=== PATIENT | female | born 1950 | race Caucasian/White ===

== ENCOUNTER 2017-03-08 10:28 | Inpatient (IN) | payer BC ==
--- NOTE | 2017-03-08 11:16 | RAD ---
HISTORY: Chest pain COMPARISONS: July 13, 2012 VIEWS:1: Single frontal portable view of the chest at 10:56 AM FINDINGS: LINES AND TUBES: None. CARDIOMEDIASTINAL SILHOUETTE: The cardiomediastinal silhouette is normal for portable technique. PLEURA: The costophrenic angles are sharp. No pleural abnormalities are noted. LUNG PARENCHYMA: There is hyperinflation. ABDOMEN: The upper abdomen is clear. There is no subphrenic gas. BONES AND SOFT TISSUES: No bone or soft tissue abnormalities are noted. IMPRESSION: NO ACTIVE CARDIOPULMONARY DISEASE.
[2017-03-08 11:26] LABS: Hematocrit 42 % (35-47); Hemoglobin 13.7 g/dl (12.0-16.0); Mean Corpuscular HGB Conc 33 g/dl (31-36); Mean Corpuscular Hemoglobin 32 pg (27-31); Mean Corpuscular Volume 98 fL (80-97); Mean Platelet Volume 9 um3 (7.4-10.4); Red Blood Count 4.24 10^6/ul (4.0-5.4); Red Cell Distribution Width 14 % (10.5-15); White Blood Count 4.8 10^3/ul (3.5-10.8)
[2017-03-08 11:43] LABS: Albumin 3.9 g/dL (3.2-5.2); BUN/Creatinine Ratio 17.6 (8-20); Calcium 9.3 mg/dL (8.6-10.3); EGFR African American 86.6 (>60); EGFR Non-African American 67.3 (>60); Globulin 2.7 g/dL (2-4); Potassium 3.9 mmol/L (3.5-5.0); Total Bilirubin 0.4 mg/dL (0.2-1.0); Total Protein 6.6 g/dL (6.4-8.9)
[2017-03-08 11:48] LABS: Troponin I 0.46 ng/mL (<0.04)
[2017-03-08] MEDS ORDERED: Nitroglycerin TAB 0.4 MG* 0.4 MG TAB SL ONE (12:06)
[2017-03-08] MEDS ORDERED: Aspirin Low Dose CHEW TAB* 81 MG PO ONE (12:06)
[2017-03-08] MEDS ORDERED: Enoxaparin(*) 60 MG/0.6 ML SYR SUBCUT ONE (12:08)
[2017-03-08] MEDS ORDERED: Metoprolol Tartrate TAB* 25 MG PO ONE (12:19)
[2017-03-08] MEDS ORDERED: Atorvastatin* 80 MG TAB PO ONE (12:20)
[2017-03-08] MEDS ORDERED: Clopidogrel TAB* 300 MG PO ONE (13:18)
[2017-03-08] MEDS ORDERED: Morphine INJ* 2 MG/ML 1 ML SYRINGE IV PRN (13:18)
[2017-03-08] MEDS ORDERED: Nitroglycerin TAB 0.4 MG* 0.4 MG TAB SL PRN (13:18)
[2017-03-08 13:51] LABS: Magnesium 1.9 mg/dL (1.9-2.7)
[2017-03-08 13:57] LABS: TSH (Thyroid Stimulating Horm) 1.43 mcIU/mL (0.34-5.60)
[2017-03-08] MEDS ORDERED: Captopril TAB* 12.5 MG PO SCH (14:00)
[2017-03-08] MEDS ORDERED: Nicotine GUM* 2 MG PO PRN (14:11)
[2017-03-08] MEDS ORDERED: Nicotine Inhaler* 10 MG AMP INH PRN (14:11)
[2017-03-08] MEDS ORDERED: Mouth Piece, Nicotine* 1 EACH CARTRIDGE INH ONE (15:00)
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
[2017-03-08] MEDS: amLODIPine TAB* 5 MG PO SCH (15:35)
--- NOTE | 2017-03-08 16:37 | HP ---
CC: Dr. Lindsey * MEDICINE HISTORY AND PHYSICAL: DATE OF ADMISSION: 03/08/17 PROVIDER: Manuel Huerta NP ATTENDING PHYSICIAN: Zita Esparza MD * (as dictated by Manuel Huerta NP) . CONSULTING PHYSICIAN: Pavel Segundo MD, Cardiology. PRIMARY CARE PROVIDER: Tatiana Lindsey MD CHIEF COMPLAINT: Chest discomfort and left arm numbness. HISTORY OF PRESENT ILLNESS: Ms. Mendez is a 66-year-old female who presents today with concern for chest pressure and left arm numbness. This started originally about 3 days ago when the patient thought she was having frequent heartburn. She describes as burning to the mid chest with burping. She reports that prior to that she really got heartburn. It will last about 5 minutes at a time and then cease on its own. She has been treating this with Tums and baking soda and water. She started having left arm numbness accompanying these symptoms, which started about 2 days ago, also intermittent and described some fatigue, but she attributed to humidity and this was in addition to the chest discomfort and arm numbness. This morning, the patient reports that her arm felt almost totally numb and the feeling in her chest turned to pressure as opposed to burning. At this point, her made her to come into the ER for further evaluation. Here in the ER, the patient initially continues to show no radiographic changes, but her initial troponin was seemed to be 0.46. There was concern for NSTEMI and Cardiology was consulted. Of note, the patient does have a history of carotid endarterectomy around 2001 that was based on the finding as her physician heard a carotid bruit. She was previously on aspirin and Lipitor, but she self-discontinued these medications because she thought she did not need them. She denies any recent fevers, chills. The last known cold was few weeks ago. She states that she usually sleeps well, but she does wake up a lot during the night. She denies snoring or daytime sleepiness. She does again endorse chest discomfort and pressure. Denies any palpitations, dizziness, syncopal episodes, or lower extremity edema. She denies any shortness of breath, cough. She denies any abdominal pain, nausea, vomiting, or diarrhea. She denies dysuria, frequency, or hematuria. She denies any focal weakness, difficulty with speech, ataxia. She denies any new visual complaints, hearing complaints, or swallowing complaints, any new joint or muscle pains. The patient reports that she gets intermittent rashes to her back that is attributed to herpes simplex virus, but no flare-up of it recently. PAST MEDICAL HISTORY: 1. Hypothyroidism. 2. Herpes simplex virus to the back, states that she has flare-ups when she gets nervous and takes acyclovir daily for this. 3. History of meningoma. PAST SURGICAL HISTORY: Includes: 1. Carotid endarterectomy in 2001. 2. Tonsillectomy. 3. Left breast tumor removal in 1969 that was benign. 4. History of ovarian cyst removal. 5. Tubal ligation. ALLERGIES: Include PEANUTS, LEGUMES, ERYTHROMYCIN, IBUPROFEN, AND NAPROXEN. HOME MEDICATIONS: 1. Levothyroxine 50 mcg daily. 2. Acyclovir 200 mg daily. 3. Ascorbic acid 500 mg daily. 4. Multivitamin 1 tab daily. 5. Black cohosh 540 mg daily. FAMILY HISTORY: Significant for father who of an OH at age 53 and mother who has diabetes and chronic kidney disease, a brother with high blood pressure and aunt with breast cancer. SOCIAL HISTORY: The patient endorses a 48 year smoking history and states that she only smokes occasional cigarette and e-cigarettes now. She denies any alcohol use and reports occasional marijuana use. 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 She is . Her , Scott Mendez, is her healthcare proxy. REVIEW OF SYSTEMS: As per HPI. PHYSICAL EXAMINATION GENERAL: Ms. Mendez is very pleasant 66-year-old female, who is lying in the ED stretcher, in no acute distress. VITAL SIGNS: Temperature 97.5, heart rate 60, respiratory rate 22, blood pressure 146/79, and O2 saturation is 99% on room air. HEENT: Head is atraumatic, normocephalic. Face is symmetrical. Pupils are equal, round, and reactive to light. Extraocular movements are intact. Sclerae are anicteric. Oral mucosa is moist. There is no oropharyngeal erythema or exudate. NECK: Supple. No JVD noted. No carotid bruits noted. The patient has full range of motion. CARDIAC: S1 and S2. Heart sounds regular rate and rhythm. No murmurs, rubs, or gallops. No peripheral edema. Distal pulses are 2+ equal bilaterally. RESPIRATORY: Lungs are clear to auscultation. No accessory muscle use. ABDOMEN: Soft, nontender, nondistended. Bowel sounds present in all 4 quadrants. MUSCULOSKELETAL: There is no clubbing or cyanosis. The patient has full range of motion. SKIN: Appears grossly intact. NEUROLOGIC: Cranial nerves II through XII are grossly intact. The patient moves all extremities with no focal deficits. Sensation is intact to light touch to the lower extremities. PSYCHIATRIC: She is alert and oriented x3. Affect is appropriate. LABORATORY DATA AND DIAGNOSTIC STUDIES: CBC: WBC 4.8, hemoglobin 13.7, hematocrit 42, MCV 98, MCH 32, platelet count 257. CMP: Sodium 139, potassium 3.9, chloride 104, carbon dioxide 31, BUN 15, creatinine 0.95, glucose 109, lactic acid 1.6, calcium 9.3, magnesium 1.9. Total bilirubin 0.4, AST 25, ALT 16, alk phos 75. Total CK 162, CK-MB 9.5, troponin 0.46, BNP 53. Albumin 3.9. TSH 1.43. EKG shows sinus bradycardia, rate of [address] changes or T-wave inversions. Chest x-ray shows no acute pathology. Limited medical records for review. ASSESSMENT AND PLAN: Ms. Mendez is a 66-year-old female who presents today with chest discomfort and left arm numbness that are significant concerning for non-ST elevation myocardial infarction. She will be admitted to the telemetry. Plan is as follows: 1. Non-ST elevation myocardial infarction. Cardiology is following. The patient has been started on subcu Lovenox for full anticoagulation and additionally we started her on Plavix, aspirin, atorvastatin, and metoprolol with p.r.n. nitroglycerin. We will carefully monitor her blood pressure. The patient is mildly bradycardic, so we may have to hold off on the beta lisa if she is persistently bradycardic, as right now I have started her on 12.5 mg b.i.d. with hold parameters. At this time, the plan is for cardiac catheterization on Friday. Dr. Christopher is planning to see the patient tomorrow. No JAZIEL inhibitor was started for the patient at this time, as she will likely receive dye with cardiac catheterization and would like to prevent any acute kidney injury. I have started her on amlodipine which is the new medication for better blood pressure control as she is mildly hypertensive. We will continue p.r.n. nitroglycerin to keep the patient pain free. She is currently denying any chest pain or arm numbness, though we will continue to monitor. We will check lipid profile tomorrow as well as the hemoglobin A1c and continue to modify the patient's risk factors and continue with medical management. 2. Hypothyroidism. TSH is 1.43. Continue current levothyroxine dose. 3. History of herpes simplex virus. It appears that the patient was switched to acyclovir on a p.r.n. basis, but takes it daily to avoid flare-up, so we will continue this. 4. Macrocytosis. This is mild. I will check a B12 and folate level tomorrow. Continue to monitor. 5. Tobacco abuse. P.r.n. nicotine replacement available as needed. The patient has been advised to stop smoking. 6. FEN: The patient is ordered a heart healthy diet. 7. DVT prophylaxis: She will be fully anticoagulated with Lovenox. 8. Code status: The patient is a full code. TIME SPENT: Time spent on this admission was approximately 65 minutes, more than half of the time was spent [id number] with the patient obtaining history and physical, performing the physical examination, and reviewing the plan of care. Plan of care was also reviewed with my attending, Dr. Esparza, who is in agreement. MANUEL HUERTA, SENIOR SOFTWARE ANALYST [id number]/[facility] #: [id number] ANTONIO
[2017-03-08] MEDS: Atorvastatin* 80 MG TAB PO SCH (18:18)
[2017-03-08] MEDS: Metoprolol Tartrate TAB* 25 MG PO SCH (20:25)
[2017-03-08] MEDS: Enoxaparin(*) 60 MG/0.6 ML SYR SUBCUT SCH (23:56)
[2017-03-09 03:15] LABS: Hematocrit 40 % (35-47); Mean Corpuscular HGB Conc 33 g/dl (31-36); Mean Corpuscular Hemoglobin 32 pg (27-31); Mean Corpuscular Volume 98 fL (80-97); Mean Platelet Volume 9 um3 (7.4-10.4); Red Blood Count 4.02 10^6/ul (4.0-5.4); Red Cell Distribution Width 14 % (10.5-15); White Blood Count 6.1 10^3/ul (3.5-10.8)
[2017-03-09] MEDS: Levothyroxine TAB* 50 MCG TAB PO SCH (05:11)
[2017-03-09 06:22] LABS: BUN/Creatinine Ratio 17.9 (8-20); Calcium 9.2 mg/dL (8.6-10.3); EGFR African American 95.6 (>60); EGFR Non-African American 74.4 (>60); HDL Cholesterol 54.7 mg/dL; Potassium 4.1 mmol/L (3.5-5.0)
[2017-03-09 06:26] LABS: Troponin I 0.69 ng/mL (<0.04)
[2017-03-09 06:51] LABS: Folate 19.64 ng/mL (>3.99)
[2017-03-09] MEDS: Metoprolol Tartrate TAB* 25 MG PO SCH ×2 (07:40→20:08)
[2017-03-09] MEDS: amLODIPine TAB* 5 MG PO SCH (09:26)
[2017-03-09] MEDS: Acyclovir* 200 MG CAP PO SCH (09:26)
[2017-03-09] MEDS: Multivitamins/Minerals TAB PO SCH (09:26)
[2017-03-09] MEDS: Ascorbic Acid TAB* 500 MG PO SCH (09:27)
[2017-03-09] MEDS: Clopidogrel TAB* 75 MG PO SCH (09:27)
[2017-03-09] MEDS: Aspirin Low Dose CHEW TAB* 81 MG PO SCH (09:27)
[2017-03-09] MEDS: Acetaminophen TAB* 325 MG PO PRN ×2 (09:30→20:19)
--- NOTE | 2017-03-09 11:09 | ECHO ---
Patient: ILANA DOW [facility] Rec#: [id number] : 1950 Date: 03/09/2017 Age: 66y Height: 167.64 cm / 66.0 in Weight: 57.15 kg / 126.0 lbs Sex: F BSA: 1.64 Room#: 433 Admit Date#: 03/08/2017 Type: Inpatient Referring: Christina Roy Reading: Pavel Segundo MD [employer]: Ashley Mcnamara,STACICS,RDMS CC: Tatiana Lindsey MD Transthoracic Echocardiogram Indication: NSTEMI BP: 104/53 HR: 64 Rhythm: NSR Findings History: Carotid endarterectomy, smoker. Technical Comments: The study quality is good. Completed 0940 Left Ventricle: The left ventricular chamber size is normal. There is normal left ventricular systolic function. The estimated ejection fraction is 55-60%. There is no consistent Doppler evidence of clinically significant diastolic dysfunction. The mid inferior wall segment is hypokinetic (score 2). Overall wallmotion score index is 2.00 Left Atrium: The left atrial chamber size is normal. Right Ventricle: The right ventricular chamber size and systolic function are within normal limits. Right Atrium: The right atrial cavity size is normal. Aortic Valve: The aortic valve is trileaflet. The aortic valve leaflets are mildly thickened. There is no evidence of aortic regurgitation. There is no evidence of aortic stenosis. Mitral Valve: The mitral valve leaflets appear normal. There is no evidence of mitral regurgitation. Tricuspid Valve: The tricuspid valve leaflets are normal. There is trace tricuspid regurgitation. No pulmonary hypertension is noted. Pulmonic Valve: There is no evidence of pulmonic valve thickening. There is a trace pulmonic regurgitation. There is no pulmonic stenosis. Pericardium: There is no significant pericardial effusion. Aorta: The aortic root appears normal. There is no dilatation of the ascending aorta. There is no dilatation of the aortic arch. Pulmonary Artery: The main pulmonary artery appears normal. Venous: The inferior vena cava appears normal in size. There is a greater than 50% respiratory change in the inferior vena cava dimension. Conclusions There is overall normal left ventricular systolic function. The estimated ejection fraction is 55-60%. There appears to be a small area of mid inferior wall hypokinesis. Normal cardiac chamber sizes. Functionally benign heart valves. There is no prior echocardiogram available to compare with at this time. Measurements Name Value Normal Range RVIDd (AP) 2D 2 cm (0.9 - 2.6) RVDdMajor (2D) 2.3 cm (2.2 - 4.4) RAd ISD 4CH 4.1 cm (3.4 - 4.9) RA (A4C)W 3.9 cm (2.9 - 4.6) IVSd (2D) 1 cm (0.6 - 1) LVPWd (2D) 0.8 cm (0.6 - 1) LVIDd (2D) 3.9 cm (3.6 - 5.4) LVIDs (2D) 2.6 cm - LV FS (2D) 34 % (25 - 45) EF Teichholz (2D) 63 % - Aortic Annulus 1.9 cm (1.4 - 2.6) Ao root diameter (2D) 3 cm (2.1 - 3.5) Ascending Ao 2.8 cm (2.1 - 3.4) Aortic arch 2.6 cm (1.8 - 3.4) LA dimension (AP) 2D 2.9 cm (2.3 - 3.8) LAd ISD 4CH 4.2 cm (2.9 - 5.3) LA ISD 4CH W 3.9 cm (2.5 - 4.5) Name Value Normal Range LA ESV SP 4CH (A/L) 41.69 ml - LA ESV SP 2CH (A/L) 33.71 ml - LA ESV BP (A/L) 40 ml - LA ESV BP (A/L) index 24 ml/m2 - LA ESV SP 4CH (MOD) 38.39 ml - LA ESV SP 2CH (MOD) 31.06 ml - Name Value Normal Range MV E-wave Vmax 0.8 m/sec - MV deceleration time 238 msec - MV A-wave Vmax 0.7 m/sec - MV E:A ratio 1.1 ratio - P. vein S-wave Vmax 0.5 m/sec - P. vein D-wave Vmax 0.6 m/sec - P. vein S:D Vmax ratio 0.9 ratio - P. vein A-wave duration 125 msec - LV septal e' Vmax 0.06 m/sec - LV lateral e' Vmax 0.07 m/sec - LV E:e' septal ratio 13 ratio - LV E:e' lateral ratio 11 ratio - Name Value Normal Range AV Vmax 1.4 m/sec - AV VTI 34 cm - AV peak gradient 8 mmHg - AV mean gradient 4.4 mmHg - LVOT Vmax 0.8 m/sec - LVOT VTI 20 cm - LVOT peak gradient 2.6 mmHg - LVOT mean gradient 1.7 mmHg - JACQUES Vmax 0.8 m/sec - Name Value Normal Range TR Vmax 2.5 m/sec - TR peak gradient 25 mmHg - RAP 3 mmHg - RVSP 28 mmHg - IVC diameter 1.7 cm - Name Value Normal Range PV Vmax 0.8 m/sec - PV peak gradient 2.6 mmHg - Wallmotion BAS Not Seen BA Not Seen BAL Not Seen JACOBY Not Seen BI Not Seen BIS Not Seen MAS Not Seen MA Not Seen MAL Not Seen MIL Not Seen KS Hypokinetic MIS Not Seen Not Seen AA Not Seen AL Not Seen AI Not Seen APEX Not Seen
[2017-03-09] MEDS: Enoxaparin(*) 60 MG/0.6 ML SYR SUBCUT SCH (12:00)
[2017-03-09] MEDS ORDERED: Enoxaparin(*) 60 MG/0.6 ML SYR SUBCUT SCH (13:23)
[2017-03-09] MEDS: Atorvastatin* 80 MG TAB PO SCH (17:35)
--- NOTE | 2017-03-09 18:37 | PN ---
Subjective Date of Service: 03/09/17 Interval History: no pain, sob OOB and waking to bathroom Objective Active Medications: Acetaminophen (Tylenol Tab*) 650 mg PO Q4H PRN PRN Reason: FEVER/PAIN Last Admin: 03/09/17 09:30 Dose: 650 mg Acyclovir (Zovirax Cap*) 200 mg PO DAILY [facility] Last Admin: 03/09/17 09:26 Dose: 200 mg Amlodipine Besylate (Norvasc Tab*) 5 mg PO DAILY [facility] Last Admin: 03/09/17 09:26 Dose: 5 mg Ascorbic Acid (Vitamin C Tab*) 500 mg PO DAILY [facility] Last Admin: 03/09/17 09:27 Dose: 500 mg Aspirin (Aspirin Low Dose Tab*) 81 mg PO DAILY [facility] Last Admin: 03/09/17 09:27 Dose: 81 mg Atorvastatin Calcium (Lipitor*) 80 mg PO 1700 [facility] Last Admin: 03/09/17 17:35 Dose: 80 mg Clopidogrel Bisulfate (Plavix Tab*) 75 mg PO DAILY [facility] Last Admin: 03/09/17 09:27 Dose: 75 mg Diazepam (Valium Tab(*)) 5 mg PO ONCE ONE Stop: 03/10/17 08:01 Diphenhydramine HCl (Benadryl Po*) 25 mg PO ONCE ONE Stop: 03/10/17 08:01 Enoxaparin Sodium (Lovenox(*)) 60 mg SUBCUT ONCE ONE Stop: 03/10/17 00:01 Sodium Chloride (Ns 0.9% 1000 Ml*) 1,000 mls @ 100 mls/hr IV .per rate [facility] Levothyroxine Sodium (Synthroid Tab*) 50 mcg PO DAILY@0600 [facility] Last Admin: 03/09/17 05:11 Dose: 50 mcg Metoprolol Tartrate (Lopressor Tab*) 12.5 mg PO Q12HR [facility] Last Admin: 03/09/17 07:40 Dose: Not Given Morphine Sulfate (Morphine Inj (Syringe)*) 2 mg IV Q4H PRN PRN Reason: PAIN Multivitamins/Minerals (Theragran/Minerals Tab*) 1 tab PO DAILY [facility] Last Admin: 03/09/17 09:26 Dose: 1 tab Nicotine (Nicotine Inhaler*) 10 mg INH Q2H PRN PRN Reason: CRAVING Last Admin: 03/08/17 16:00 Dose: 10 mg Nicotine Polacrilex (Nicotine Gum*) 2 mg PO Q2H PRN PRN Reason: CRAVING Nitroglycerin (Nitroglycerin Tab 0.4 Mg*) 0.4 mg SL Q5M PRN PRN Reason: ANGINA Vital Signs 03/08/17 03/08/17 03/08/17 19:52 20:00 23:33 Temperature 98.3 F 98.3 F Pulse Rate 65 63 Respiratory 16 17 16 Rate Blood Pressure 119/59 96/57 (mmHg) O2 Sat by Pulse 99 97 Oximetry 03/08/17 03/08/17 03/09/17 23:34 23:35 03:50 Temperature 98.0 F Pulse Rate 110 57 Respiratory 16 Rate Blood Pressure 110/70 104/53 (mmHg) O2 Sat by Pulse 99 Oximetry 03/09/17 03/09/17 03/09/17 07:37 07:43 10:57 Temperature 97.6 F 97.9 F Pulse Rate 48 55 Respiratory 18 16 18 Rate Blood Pressure 113/51 115/58 (mmHg) O2 Sat by Pulse 100 99 Oximetry 03/09/17 15:17 Temperature 97.8 F Pulse Rate 60 Respiratory 16 Rate Blood Pressure 113/59 (mmHg) O2 Sat by Pulse 99 Oximetry Oxygen Devices in Use Now: None Appearance: NAD Eyes: No Scleral Icterus, PERRLA Ears/Nose/Mouth/Throat: Clear Oropharnyx, Mucous Membranes Moist Respiratory: Symmetrical Chest Expansion and Respiratory Effort, Clear to Auscultation Cardiovascular: RRR Abdominal: NL Sounds; No Tenderness; No Distention, No Hepatosplenomegaly Lymphatic: No Cervical Adenopathy Extremities: No Edema, No Clubbing, Cyanosis Skin: No Rash or Ulcers Neurological: Alert and Oriented x 3 Result Diagrams: 03/09/17 03:05 03/09/17 06:00 Assess/Plan/Problems-Billing Assessment: 67 yo F h/o tobacco abuse p/w chest pain f/w NSTEMI - Patient Problems (1) NSTEMI (non-ST elevated myocardial infarction) Comment: ASA, plavix, statin, metoprolol, full dose lovenox plan on [facility] tomorrow (2) Hypothyroid Comment: synthroid (3) Tobacco abuse Comment: occasional cigarettes and uses vaporizer nicotine replacement counseled cessation (4) DVT prophylaxis Comment: full dose lovenox
--- NOTE | 2017-03-09 22:37 | ED ---
Sunil Ferro Thomas, scribed for Chris Matias MD on 03/08/17 at 1057 . HPI Chest Pain - HPI Summary HPI Summary: The pt is a 66 y/o F presenting to the ED c/o intermittent CP that began 3 days ago. In the ED, the pt says that there is no CP. This AM, the pt says that her CP was more intense (having a heartburn quality) and she had episodes of arm numbness and heavy central CP, causing her to present to the ED. The pt c/o arm soreness and it "feels like somebody hit me". The pt denies fever, diaphoresis, chills, leg swelling, leg pain. Her drove her to the ambulance. She did not take aspirin earlier today. She denies a PMHx of HTN and DM. FHx: ME. SHx: occasional tobacco use. The pt is employed full-time. - History of Current Complaint Chief Complaint: EDChestPainROMI Time Seen by Provider: 03/08/17 10:40 Hx Obtained From: Patient Onset/Duration: Started Days Ago - 3 days, Resolved - in the ED Timing: Intermittent Current Severity: None Pain Intensity: 0 Pain Scale Used: 0-10 Numeric Chest Pain Radiates: Yes Chest Pain Radiates To:: Arm - soreness Character: Burning, Heaviness, Other: - POS: numbness Aggravating Factor(s): Nothing Alleviating Factor(s): Nothing Associated Signs and Symptoms: Positive: Chest Pain, Other: - POS: myalgia in arm--"feels like somebody hit me"; NEG: leg pain.. Negative: Fever, Chills, Diaphoresis, Edema - leg - Allergy/Home Medications Allergies/Adverse Reactions: Allergies Allergy/AdvReac Type Severity Reaction Status Date / Time Ibuprofen Allergy Hives Verified 03/08/17 13:33 Peanut-containing Drug Allergy Anaphylatic Verified 03/08/17 13:33 Products Shock Erythromycin AdvReac GI Upset Verified 03/08/17 12:43 Naproxen AdvReac Stomach Verified 03/08/17 13:33 Cramps legume Allergy Hives/Diff. Uncoded 03/08/17 13:33 Breathing/I tching Home Medications: Home Medications Acyclovir* [Zovirax CAP*] 200 mg PO DAILY 03/08/17 [History Confirmed 03/08/17] Ascorbic Acid TAB* [Vitamin C TAB*] 500 mg PO DAILY 03/08/17 [History Confirmed 03/08/17] Black Cohosh (Afshin [place] [Black Cohosh] 540 mg PO DAILY 03/08/17 [History Confirmed 03/08/17] Levothyroxine TAB* [Synthroid TAB*] 50 mcg PO DAILY@0600 03/08/17 [History Confirmed 03/08/17] Multivitamins/Minerals TAB* [Thera M Plus TAB*] 1 tab PO DAILY 03/08/17 [ History Confirmed 03/08/17] PMH/Surg Hx/FS Hx/Imm Hx Previously Healthy: Yes Cardiovascular History: Denies: Hx Angina, Hx Hypertension, Hx Myocardial Infarction - Cancer History Hx Chemotherapy: No Hx Radiation Therapy: No - Surgical History Surgery Procedure, Year, and Place: ARTERIE SURGERY 2002,TUBALIGATION 1979", LUMP ON LEFT BREAST Infectious Disease History: Denies: Traveled Outside the [place] in Last 30 Days - Family History Known Family History: Positive: Other - POS: [place] - Social History Occupation: Employed Full-time Hx Tobacco Use: Yes Smoking Status (MU): Current Every Day Smoker Review of Systems Constitutional: Negative Negative: Fever, Chills, Skin Diaphoresis Eyes: Negative Negative: Erythema - eyes ENT: Negative Negative: Sore Throat Positive: Chest Pain - none in the ED, but previously, onset 3 days ago Respiratory: Negative Negative: Shortness Of Breath, Cough Gastrointestinal: Negative Negative: Abdominal Pain, Vomiting, Nausea Genitourinary: Negative Negative: dysuria, hematuria Musculoskeletal: Other - NEG: leg pain Positive: Myalgia - arm, "it feels like somebody hit me". Negative: Edema - leg Skin: Negative Negative: Rash Neurological: Negative, Other - NEG: dizziness All Other Systems Reviewed And Are Negative: Yes Physical Exam - Summary Physical Exam Summary: Constitutional: Well-developed, Well-nourished, Alert. (-) Distressed Skin: Warm, Dry HENT: Normocephalic; Atraumatic Eyes: Conjunctiva normal Neck: Musculoskeletal ROM normal neck. (-) JVD, (-) Stridor, (-) Tracheal deviation Cardio: Rhythm regular, rate normal, Heart sounds normal; Intact distal pulses; The pedal pulses are 2+ and symmetric. Radial pulses are 2+ and symmetric. (-) Murmur Pulmonary/Chest wall: Effort normal. (-) Respiratory distress, (-) Wheezes, (-) Rales Abd: Soft, (-) Tenderness, (-) Distension, (-) Guarding, (-) Rebound Musculoskeletal: (-) Edema Lymph: (-) Cervical adenopathy Neuro: Alert, Oriented x3 Psych: Mood and affect Normal Triage Information Reviewed: Yes Vital Signs On Initial Exam: Initial Vitals Temp Pulse Resp BP Pulse Ox 97.4 F 65 17 157/65 99 03/08/17 10:36 03/08/17 10:36 03/08/17 10:36 03/08/17 10:36 03/08/17 10:36 Vital Signs Reviewed: Yes Diagnostics - Vital Signs Vital Signs Temp Pulse Resp BP Pulse Ox 03/08/17 10:36 97.4 F 65 17 157/65 99 - Laboratory Lab Results: Lab Results 03/08/17 03/08/17 03/08/17 Range/Units 11:15 11:15 11:15 WBC 4.8 (3.5-10.8) 10^3/ul RBC 4.24 (4.0-5.4) 10^6/ul Hgb 13.7 (12.0-16.0) g/dl Hct 42 (35-47) % MCV 98 H (80-97) fL MCH 32 H (27-31) pg MCHC 33 (31-36) g/dl RDW 14 (10.5-15) % Plt Count 257 (150-450) 10^3/ul MPV 9 (7.4-10.4) um3 Neut % (Auto) 45.3 (38-83) % Lymph % (Auto) 30.7 (25-47) % Calloway % (Auto) 9.4 H (1-9) % Eos % (Auto) 12.0 H (0-6) % Baso % (Auto) 2.6 H (0-2) % Absolute Neuts (auto) 2.2 (1.5-7.7) 10^3/ul Absolute Lymphs (auto) 1.5 (1.0-4.8) 10^3/ul Absolute Monos (auto) 0.5 (0-0.8) 10^3/ul Absolute Eos (auto) 0.6 (0-0.6) 10^3/ul Absolute Basos (auto) 0.1 (0-0.2) 10^3/ul Absolute Nucleated RBC 0 10^3/ul Nucleated RBC % 0.1 Sodium 139 (133-145) mmol/L Potassium 3.9 (3.5-5.0) mmol/L Chloride 104 (101-111) mmol/L Carbon Dioxide 31 (22-32) mmol/L Anion Gap 4 (2-11) mmol/L BUN 15 (6-24) mg/dL Creatinine 0.85 (0.51-0.95) mg/dL Est GFR ( Amer) 86.6 (>60) Est GFR (Non-Af Amer) 67.3 (>60) BUN/Creatinine Ratio 17.6 (8-20) Glucose 109 H (70-100) mg/dL Hemoglobin A1c (Less than 6.0) % Lactic Acid 1.6 (0.5-2.0) mmol/L Calcium 9.3 (8.6-10.3) mg/dL Magnesium 1.9 (1.9-2.7) mg/dL Total Bilirubin 0.40 (0.2-1.0) mg/dL AST 25 (13-39) U/L ALT 16 (7-52) U/L Alkaline Phosphatase 75 (34-104) U/L Total Creatine Kinase 162 (10-223) U/L CK-MB (CK-2) 9.5 H (0.6-6.3) ng/mL Troponin I 0.46 H* (<0.04) ng/mL B-Natriuretic Peptide ( - 100) pg/mL Total Protein 6.6 (6.4-8.9) g/dL Albumin 3.9 (3.2-5.2) g/dL Globulin 2.7 (2-4) g/dL Albumin/Globulin Ratio 1.4 (1-3) TSH 1.43 (0.34-5.60) mcIU/mL 03/08/17 03/08/17 Range/Units 11:22 11:22 WBC (3.5-10.8) 10^3/ul RBC (4.0-5.4) 10^6/ul Hgb (12.0-16.0) g/dl Hct (35-47) % MCV (80-97) fL MCH (27-31) pg MCHC (31-36) g/dl RDW (10.5-15) % Plt Count (150-450) 10^3/ul MPV (7.4-10.4) um3 Neut % (Auto) (38-83) % Lymph % (Auto) (25-47) % Calloway % (Auto) (1-9) % Eos % (Auto) (0-6) % Baso % (Auto) (0-2) % Absolute Neuts (auto) (1.5-7.7) 10^3/ul Absolute Lymphs (auto) (1.0-4.8) 10^3/ul Absolute Monos (auto) (0-0.8) 10^3/ul Absolute Eos (auto) (0-0.6) 10^3/ul Absolute Basos (auto) (0-0.2) 10^3/ul Absolute Nucleated RBC 10^3/ul Nucleated RBC % Sodium (133-145) mmol/L Potassium (3.5-5.0) mmol/L Chloride (101-111) mmol/L Carbon Dioxide (22-32) mmol/L Anion Gap (2-11) mmol/L BUN (6-24) mg/dL Creatinine (0.51-0.95) mg/dL Est GFR ( Amer) (>60) Est GFR (Non-Af Amer) (>60) BUN/Creatinine Ratio (8-20) Glucose (70-100) mg/dL Hemoglobin A1c 5.9 (Less than 6.0) % Lactic Acid (0.5-2.0) mmol/L Calcium (8.6-10.3) mg/dL Magnesium (1.9-2.7) mg/dL Total Bilirubin (0.2-1.0) mg/dL AST (13-39) U/L ALT (7-52) U/L Alkaline Phosphatase (34-104) U/L Total Creatine Kinase (10-223) U/L CK-MB (CK-2) (0.6-6.3) ng/mL Troponin I (<0.04) ng/mL B-Natriuretic Peptide 53 ( - 100) pg/mL Total Protein (6.4-8.9) g/dL Albumin (3.2-5.2) g/dL Globulin (2-4) g/dL Albumin/Globulin Ratio (1-3) TSH (0.34-5.60) mcIU/mL Result Diagrams: 03/09/17 03:05 03/09/17 06:00 Lab Statement: Any lab studies that have been ordered have been reviewed, and results considered in the medical decision making process. - Radiology CXR Xray Interpretation: No Acute Changes - no active cardiopulmonary disease Radiology Interpretation Completed By: Radiologist - EKG 10:44 Cardiac Rate: Bradycardia - 58 BPM EKG Interpretation: Sinus Bradycardia. No STEMI. Chest Pain Course/Dx - Course Assessment/Plan: The pt is a 66 y/o F presenting to the ED c/o intermittent CP that began 3 days ago. In the ED, the pt says that there is no CP. This AM, the pt says that her CP was more intense (having a heartburn quality) and she had episodes of arm numbness and heavy central CP, causing her to present to the ED. The pt c/o arm soreness and it "feels like somebody hit me". The pt denies fever, diaphoresis, chills, leg swelling, leg pain. Her drove her to the ambulance. She did not take aspirin earlier today. She denies a PMHx of HTN and DM. FHx: ME. SHx: occasional tobacco use. The pt is employed full-time. A CXR revealed no active cardiopulmonary disease. An EKG revealed Sinus Bradycardia, No STEMI. Bloodwork revealed troponin 0.46, glucose 109, CK-MB 9.5 , MCV 98, MCH 32, Calloway% 9.4, Eos% 12.0, Baso%2.6. Consulted with Dr. Pavel Segundo, who agreed with Lovenox. Recommended treatment for cholesterol but not beta-blockers due to bradycardia. Also consulted with Dr. Gan, who will admit the patient. In the ED course the pt was given ASA, Lipitor, Enoxaparin, Metoprolol, and NTG. 35 minutes of Critical care time. Admitted to [facility]. - Diagnoses Provider Diagnoses: NSTEMI (non-ST elevated myocardial infarction) - Provider Notifications Discussed Care Of Patient With: Pavel Segundo Time Discussed With Above Provider: 12:17 Instructed by Provider To: Other - Agreed with Lovenox. Recommended treatment for cholesterol but not beta-blockers due to bradycardia. Also consulted with Dr. Gan, 12:22, who will admit the patient. - Critical Care Time Critical Care Time: 30-74 min - 35 minutes Discharge - Discharge Plan Condition: Fair Disposition: ADMITTED TO [facility] documentation as recorded by the Sunil conklin Thomas accurately reflects the service I personally performed and the decisions made by me, Chris Matias MD.
[2017-03-10] MEDS ORDERED: Enoxaparin(*) 60 MG/0.6 ML SYR SUBCUT ONE
[2017-03-10] MEDS: Levothyroxine TAB* 50 MCG TAB PO SCH (05:58)
[2017-03-10] MEDS ORDERED: NS 0.9% 1000 ML* 1,000 ML IV SCH ×2 (06:00→11:30)
[2017-03-10] MEDS ORDERED: diPHENhydraMINE PO* 25 MG PO ONE (08:00)
[2017-03-10] MEDS ORDERED: Diazepam TAB(*) 5 MG PO ONE (08:00)
[2017-03-10] MEDS: Clopidogrel TAB* 75 MG PO SCH (09:33)
[2017-03-10] MEDS: Aspirin Low Dose CHEW TAB* 81 MG PO SCH (09:33)
[2017-03-10] MEDS ORDERED: fentaNYL* 50 MCG/ML 2 ML VIAL (100 MCG VIAL) ONE (09:41)
[2017-03-10] MEDS ORDERED: Midazolam* 1 MG/ML 5 ML VIAL (5 MG) ONE (09:41)
[2017-03-10] MEDS ORDERED: Lidocaine 1% INJ* 10 MG/ML 30 ML SDV ONE (09:42)
[2017-03-10] MEDS ORDERED: Iohexol 350 (CONTRAST) 200 ML MDV IV ONE (09:42)
[2017-03-10] MEDS ORDERED: Heparin 2 UNITS/ML IVPREMIX* 1,000 ML IV ONE (09:42)
[2017-03-10] MEDS ORDERED: Heparin 2 UNITS/ML IVPREMIX* 2,000 ML IV ONE (09:42)
[2017-03-10] MEDS: Metoprolol Tartrate TAB* 25 MG PO SCH (10:15)
[2017-03-10] MEDS: Acyclovir* 200 MG CAP PO SCH (10:16)
[2017-03-10] MEDS: amLODIPine TAB* 5 MG PO SCH (10:16)
[2017-03-10] MEDS: Multivitamins/Minerals TAB PO SCH (10:17)
[2017-03-10] MEDS: Ascorbic Acid TAB* 500 MG PO SCH (10:17)
[2017-03-10] MEDS ORDERED: Heparin(*) 1000 UNIT/ML 10 ML VIAL CATH LAB IV ONE (10:45)
[2017-03-10] MEDS ORDERED: VERAPAMIL 2.5 MG/ML 4 ML VIAL ONE (10:45)
[2017-03-10] MEDS ORDERED: nitroGLYCERIN DRIP* 250 ML ONE (10:45)
[2017-03-10 13:14] VITALS: BP 115/53
--- NOTE | 2017-03-11 09:03 | CATH ---
CC: Dr. Lindsey; Dr. Segundo. CATH REPORT: DATE OF PROCEDURE: 03/10/17 PRIMARY CARE PHYSICIAN: Dr. Lindsey. CUSTOMER LEADER: Dr. Segundo. PROCEDURE: Right radial artery access, bilateral selective coronary cine angiography, left heart ca theterization, left ventriculography. HISTORY: A 66-year-old woman with a troponin positive ACS/rrx-GB-mmolmaidh VA. Troponin peaked at 0 .95 with a characteristic rise and fall. RICKI score 3. PROCEDURE ACCESS: Right radial artery. SHEATH: 6F slender. MEDICATIONS: 1. Subcu lidocaine. 2. IV Versed. 3. IV Fentanyl. 4. Heparin 3000 units. 5. Nitroglycerin 300 mcg. 6. Verapamil 3 mg IA. DIAGNOSTIC CATHETERS: 5-F TIG4, 5-F pigtail. HEMODYNAMICS: Initial BP 134/64, LV 92/4-10, no aortic valve gradient on pullback. ANGIOGRAPHY: Left Main: The left main was short, moderate, has no stenosis. LAD: The LAD has mild luminal irregularity, somewhat slow flow, but has no significant stenosis. T he LAD supplies a large mid diagonal. Circumflex: The circumflex is moderate, not dominant, supplies a moderate first marginal, small sec ond marginal, ends with a moderate posterolateral. The circumflex has mild irregularity, no signifi cant stenosis. RCA: The RCA is large, dominant, with a 40% stenosis at the acute margin. The PDA is small to mode rate followed by a large posterolateral and then a smaller posterolateral. The RCA has normal flow. LV Gram: Cavity size is small; there is near cavity obliteration, estimated EF 60%. Regional wall motion is normal. CONCLUSION: 1. Non-obstructing coronary atherosclerosis, presumably mid right culprit. 2. Normal LV systolic function. 3. Normal left-sided hemodynamics. 4. Successful right radial artery access. 5. She will be treated with dual antiplatelet therapy for 6 months, as well as high-dose potent sta tin therapy, beta blockade. She needs to stop smoking. [id number]/[facility] #: [id number]
--- NOTE | 2017-03-11 10:17 | DS ---
CC: Tatiana Lindsey MD; Jimy Boss MD * DISCHARGE SUMMARY: DATE OF ADMISSION: 03/08/17 DATE OF DISCHARGE: 03/10/17 PRIMARY CARE PROVIDER: Tatiana Lindsey MD PRIMARY DIAGNOSIS: Non Q-wave myocardial infarction. SECONDARY DIAGNOSES: Include, 1. Hyperlipidemia. 2. Tobacco abuse. 3. Hypothyroidism. 4. Peripheral vascular disease. 5. History of carotid endarterectomy. 6. Hypertension. MEDICATIONS ON DISCHARGE: Include, 1. Black cohosh 540 mg daily. 2. Ascorbic acid 500 mg daily. 3. Multivitamin one tab daily. 4. Levothyroxine 50 mcg in the morning. 5. Acyclovir 200 mg daily. 6. Norvasc 5 mg daily. 7. Nitroglycerin 0.4 mg sublingual every five minutes as needed for chest pain. 8. Metoprolol tartrate 12.5 mg daily. 9. Clopidogrel 75 mg daily for the next 6 months. 10. Atorvastatin 80 mg daily. 11. Aspirin 81 mg daily. PERTINENT LABORATORY DATA: Troponin I peaked at 0.95, total cholesterol 162, LDL 94, HDL 54, triglyceride 69, TSH 1.43, hemoglobin A1c 5.9. PROCEDURES PERFORMED DURING HOSPITAL STAY: Cardiac catheterization performed by Dr. Boss, right radial access with no stents deployed. Transthoracic echocardiogram, impression: Overall normal left ventricular systolic function with an estimated LVEF 55% to 60%. It appears to be a small area of mild inferior wall hypokinesis. Normal cardiac chamber size and functionally benign heart valves. HISTORY OF PRESENT ILLNESS AND HOSPITAL COURSE: This is a 66-year-old female with past medical history as outlined in the history of present illness on day of admission including hyperlipidemia, tobacco abuse, and early family history of CAD presented to the hospital with increasing chest pain over 3 days prior to presentation found with elevated troponin concerning for NSTEMI. The patient was placed at full dose of Lovenox, beta-lisa, high dose statin and high blood pressure control. She was evaluated by the motorcycle police officer and went for cardiac catheterization, on Friday03/10/17. A full report is pending. However found nonobstructive CAD and no stent was deployed. It was thought in the setting of patient's symptoms as well as elevated troponin , the patient did have plaque rupture that improved with time as well as heparin therapy. Fortunately, she did not require a stent, however will require dual antiplatelet therapy with aspirin and Plavix for the next 6 months. During the course of her hospital stay, she remained chest pain free. Extensive counseling regarding new medications were undergone with patient. The patient smokes irregularly but does use nicotine vaporizer consistently. We discussed at length avoiding all nicotine products including vaporizer given the unknown risk at this time. Reasons to return to the hospital included but not limited to recurrent or worsening symptoms of chest pain, shortness of breath, nausea, vomiting, lightheadedness, loss of consciousness, near loss of consciousness, palpitation , seizures, chills, night sweats, bleeding from any source, inability to obtain or tolerate medications were discussed at length with the patient. At followup please; 1. Evaluate for blood pressure control on new medications. 2. Evaluate for continued absence of angina. 3. No other specific labs or vitals that need followup. TIME SPENT: Greater than 50 minutes was spent on discharge of this patient; greater than half was spent [id number] with the patient. [id number]/[facility] #: [id number] ANTONIO
== END 2017-03-10 15:58 | disposition home or self-care (01) | DRG 190 ==
LOC: ED 10:28 → MEDTELE 12:37
PROVIDERS: ADMIT Internal Medicine; ATTEND Internal Medicine
PROC: B211YZZ Fluoroscopy of Multiple Coronary Arteries using Other Contrast (ICD-10-PCS; 2017-03-10)
PROC: B215YZZ Fluoroscopy of Left Heart using Other Contrast (ICD-10-PCS; 2017-03-10)
PROC: 4A023N7 Measurement of Cardiac Sampling and Pressure, Left Heart, Percutaneous Approach (ICD-10-PCS; principal; 2017-03-10 10:30)
DX: I21.4 Non-ST elevation (NSTEMI) myocardial infarction (principal); B00.89 Other herpesviral infection; I73.9 Peripheral vascular disease, unspecified; I11.9 Hypertensive heart disease without heart failure; E78.5 Hyperlipidemia, unspecified; F17.210 Nicotine dependence, cigarettes, uncomplicated; E03.9 Hypothyroidism, unspecified; I25.10 Atherosclerotic heart disease of native coronary artery without angina pectoris; D75.89 Other specified diseases of blood and blood-forming organs; Z88.1 Allergy status to other antibiotic agents; Z88.6 Allergy status to analgesic agent; Z91.010 Allergy to peanuts; Z91.018 Allergy to other foods; Z79.899 Other long term (current) drug therapy; Z82.49 Family history of ischemic heart disease and other diseases of the circulatory system; Z83.3 Family history of diabetes mellitus; Z84.1 Family history of disorders of kidney and ureter; Z80.3 Family history of malignant neoplasm of breast
CPT/HCPCS: 36415; 71010; 80048; 80053; 80061; 82550; 82553; 82607; 82746; 83036; 83605; 83735; 83880; 84443; 84484; 85025; 93005; 93306; 93458; 99406; A9270-GY; J1644; J1650; J2001; J2250; J3010

== ENCOUNTER 2017-04-02 12:25 | Emergency (ER) | payer BC ==
[2017-04-02 12:32] VITALS: BP 131/63
[2017-04-02] MEDS ORDERED: Aspirin Low Dose CHEW TAB* 81 MG PO ONE (12:54)
[2017-04-02] MEDS ORDERED: Nitroglycerin TAB 0.4 MG* 0.4 MG TAB SL ONE (13:14)
[2017-04-02 13:32] LABS: Hematocrit 41 % (35-47); Hemoglobin 13.2 g/dl (12.0-16.0); Mean Corpuscular HGB Conc 33 g/dl (31-36); Mean Corpuscular Hemoglobin 32 pg (27-31); Mean Corpuscular Volume 99 fL (80-97); Mean Platelet Volume 8 um3 (7.4-10.4); Red Cell Distribution Width 14 % (10.5-15)
--- NOTE | 2017-04-02 13:58 | RAD ---
Indication: Chest pain. Single frontal view of the chest performed at 1328 hours was reviewed. Comparison is made with previous exam dated March 08, 2017. No mediastinal shift is noted. Heart is of normal size and configuration. Lung iqbal appear clear. IMPRESSION: NO ACTIVE CARDIOPULMONARY DISEASE IS NOTED.
[2017-04-02 13:59] LABS: Albumin 4.2 g/dL (3.2-5.2); BUN/Creatinine Ratio 22.1 (8-20); Calcium 9.5 mg/dL (8.6-10.3); EGFR African American 85.4 (>60); EGFR Non-African American 66.4 (>60); Potassium 4.1 mmol/L (3.5-5.0); Total Bilirubin 0.4 mg/dL (0.2-1.0); Total Protein 7.2 g/dL (6.4-8.9)
--- NOTE | 2017-04-05 14:31 | ED ---
Shawna Ferro Rebecca, scribed for Chris Matias MD on 04/02/17 at 1311 . HPI Chest Pain - HPI Summary HPI Summary: Pt is a 66 y/o F who presents to ED c/o CP. Pain began a few days ago and is characterized as heaviness/pressure. Pain is currently ranked 2/10 and waxes and wanes in intensity. Reports the pain "feels like a bronchial thing" and like "congestion." Sx aggravated by nothing, alleviated by not wearing a bra. Additionally c/o SOB and slight cough. Denies edema. No recent MVC, new sports or workout regimens. No recent travel or illnesses. PMHx LA 1 month ago. FHx CAD. SHx former smoker. Development Trainer is Dr. Segundo. - History of Current Complaint Chief Complaint: EDChestPainROMI Time Seen by Provider: 04/02/17 13:01 Hx Obtained From: Patient Onset/Duration: Started Days Ago, Still Present Current Severity: Mild Pain Intensity: 2 Pain Scale Used: 0-10 Numeric Character: Heaviness, Pressure/Squeezing Aggravating Factor(s): Nothing Alleviating Factor(s): Other: - Not wearing a bra Associated Signs and Symptoms: Positive: Shortness of Breath, Cough - slight. Negative: Edema - Additional Pertinent History Primary Care Physician: VÍCTOR - Allergy/Home Medications Allergies/Adverse Reactions: Allergies Allergy/AdvReac Type Severity Reaction Status Date / Time Ibuprofen Allergy Hives Verified 03/08/17 13:33 Peanut-containing Drug Allergy Anaphylatic Verified 03/08/17 13:33 Products Shock Erythromycin AdvReac GI Upset Verified 03/08/17 12:43 Naproxen AdvReac Stomach Verified 03/08/17 13:33 Cramps legume Allergy Hives/Diff. Uncoded 03/08/17 13:33 Breathing/I tching Home Medications: Home Medications Atorvastatin* [Lipitor 80 MG*] 80 mg PO DAILY 04/02/17 [History Confirmed ] PMH/Surg Hx/FS Hx/Imm Hx Cardiovascular History: Reports: Hx Myocardial Infarction Denies: Hx Angina, Hx Hypertension Sensory History: Reports: Hx Contacts or Glasses Denies: Hx Hearing Aid Opthamlomology History: Reports: Hx Contacts or Glasses - Cancer History Hx Chemotherapy: No Hx Radiation Therapy: No - Surgical History Surgery Procedure, Year, and Place: ARTERIE SURGERY 2002,TUBALIGATION 1979"S, LUMP ON LEFT BREAST 1969' - Immunization History Date of Tetanus Vaccine: UNKNOWN Date of Influenza Vaccine: UTD Infectious Disease History: No Infectious Disease History: Denies: Traveled Outside the [place] in Last 30 Days - Family History Known Family History: Positive: Cardiac Disease, Other - POS: [place] - Social History Alcohol Use: None Substance Use Type: Reports: Marijuana Hx Tobacco Use: Yes Smoking Status (MU): Current Every Day Smoker Type: Cigarettes Have You Smoked in the Last Year: Yes Review of Systems Negative: Fever, Chills Negative: Erythema Negative: Sore Throat Positive: Chest Pain Positive: Shortness Of Breath, Cough - slight Negative: Abdominal Pain, Vomiting, Nausea Negative: dysuria, hematuria Negative: Myalgia, Edema Negative: Rash Neurological: Other - Negative dizzinss All Other Systems Reviewed And Are Negative: Yes Physical Exam - Summary Physical Exam Summary: Constitutional: Well-developed, Well-nourished, Alert. (-) Distressed Skin: Warm, Dry HENT: Normocephalic; Atraumatic Eyes: Conjunctiva normal Neck: Musculoskeletal ROM normal neck. (-) JVD, (-) Stridor, (-) Tracheal deviation Cardio: Rhythm regular, rate normal, Heart sounds normal; Intact distal pulses; The pedal pulses are 2+ and symmetric. Radial pulses are 2+ and symmetric. (-) Murmur Pulmonary/Chest wall: Effort normal. (-) Respiratory distress, (-) Wheezes, (-) Rales, (-) Reproducible tenderness Abd: Soft, (-) Tenderness, (-) Distension, (-) Guarding, (-) Rebound Musculoskeletal: (-) Edema Lymph: (-) Cervical adenopathy Neuro: Alert, Oriented x3 Psych: Mood and affect Normal Triage Information Reviewed: Yes Vital Signs On Initial Exam: Initial Vitals Temp Pulse Resp BP Pulse Ox 98.1 F 58 14 131/63 98 04/02/17 12:28 04/02/17 12:28 04/02/17 12:28 04/02/17 12:28 04/02/17 12:28 Vital Signs Reviewed: Yes Diagnostics - Vital Signs Vital Signs Temp Pulse Resp BP Pulse Ox 04/02/17 12:28 98.1 F 58 14 131/63 98 - Laboratory Result Diagrams: 04/02/17 13:23 04/02/17 13:23 Lab Statement: Any lab studies that have been ordered have been reviewed, and results considered in the medical decision making process. - Radiology CXR Xray Interpretation: No Acute Changes - NO ACTIVE CARIDOPULMONARY DISEASE IS NOTED. Radiology Interpretation Completed By: Radiologist - EKG 1240 Cardiac Rate: Bradycardia - 54 BPM EKG Rhythm: Sinus Bradycardia EKG Interpretation: No STEMI Re-Evaluation - Re-Evaluation First Eval Re-Evaluation Time: 15:12 Change: Improved Comment: Chest pain completely resolved by NTG. Second Eval Re-Evaluation Time: 17:07 Change: Unchanged Comment: Explained Dx to her, that there was no LA but that she does had CAD and an LA is not impossible. Advised to return for changing or worsening sx. Instructed to take NTG as prescribed. Chest Pain Course/Dx - Course Assessment/Plan: Pt is a 66 y/o F who presents to ED c/o CP charcaterized as heaviness/pressure for a few days. Pain is currently ranked 2/10 and waxes and wanes in intensity. Reports the pain "feels like a bronchial thing" and like "congestion." Sx alleviated by not wearing a bra. Additionally c/o SOB and slight cough. Denies edema. No recent MVC, new sports or workout regimens. No recent travel or illnesses. PMHx [place] 1 month ago. FHx CAD. SHx former smoker. Development Trainer is Dr. Segundo. CXR reveals no acute findings. EKG reveals sinus basil with no STEMI. First and second Troponins are 0.00. In the ED course, pt was administered ASA and NTG which improved sx. Discussed care of pt with Dr. Lamar. We reviewed the cath report and EKG. She recommended a repeat troponin. Patient should use her outpatient nitrates and increase Norvast to 10 mg daily. She will be D/C to home with Dx of chest pain, unespecified with a follow up with Dr. Segundo in 2-3 days and Rx for Nexium. She understands and agrees. Pt medications reviewed this visit. - Diagnoses Provider Diagnoses: Chest pain, unspecified - Provider Notifications Discussed Care Of Patient With: Jeimy Lamar Time Discussed With Above Provider: 15:35 Instructed by Provider To: Other - We reviewed the cath report and EKG. She recommended a repeat troponin. Patient should use her outpatient nitrates and increase Norvast to 10 mg daily. Discharge - Discharge Plan Condition: Stable Disposition: HOME Prescriptions: Esomeprazole Magnesium [Nexium] 40 mg PO DAILY #14 gra Patient Education Materials: Chest Pain (ED) Referrals: Pavel Segundo MD [Medical Doctor] - (Follow up with Dr. Segundo in 2-3 days.) Additional Instructions: RETURN TO EMERGENCY DEPARTMENT FOR ANY RETURNING OR WORSENING SYMPTOMS. The documentation as recorded by the Shawna conklin Rebecca accurately reflects the service I personally performed and the decisions made by , Chris Matias MD.
== END 2017-04-02 17:41 | disposition home or self-care (01) ==
LOC: ED 12:25
DX: R07.89 Other chest pain (principal); R00.1 Bradycardia, unspecified; R06.02 Shortness of breath; R05 Cough; Z88.6 Allergy status to analgesic agent; Z88.1 Allergy status to other antibiotic agents; I25.2 Old myocardial infarction; F12.90 Cannabis use, unspecified, uncomplicated; F17.210 Nicotine dependence, cigarettes, uncomplicated
CPT/HCPCS: 36415; 71010; 80053; 83605; 84484; 85025; 85379; 85610; 93005; 99284; A9270-GY